=== PATIENT | male | born 1960 | race Hispanic/Latino ===

== ENCOUNTER 2023-10-20 10:44 | Emergency (ER) | payer OTHER ==
[~2023-10-20] VITALS: Ht 165.1 cm; Wt 72.6 kg
[2023-10-20] MEDS ORDERED: BACLOFEN 10 MG TABLET PO SCH (11:30)
[2023-10-20 12:07] LABS: BASOPHILS # (AUTO) 0.04 K/uL (0.00-0.20); BASOPHILS % (AUTO) 0.6 % (0.0-5.0); EOSINOPHILS # (AUTO) 0.14 K/uL (0.00-0.70); HEMATOCRIT 43.5 % (42-54); IMMATURE GRANULOCYTE ABSOLUTE 0.02 K/uL (0-1); LYMPHOCYTES # (AUTO) 1.9 K/uL (1.0-4.8); LYMPHOCYTES % (AUTO) 27.3 % (21.0-51.0); MEAN CORPUSCULAR HEMOGLOBIN 30.1 pg (27.0-33.0); MEAN CORPUSCULAR HGB CONC 33.8 g/dL (32.0-36.0); MONOCYTES # (AUTO) 0.7 K/uL (0.1-1.0); MONOCYTES % (AUTO) 9.9 % (3.0-13.0); NEUTROPHILS # (AUTO) 4.1 K/uL (1.8-7.7); NEUTROPHILS % (AUTO) 59.9 % (40.0-77.0); PLATELET COUNT (AUTO) 260 K/uL (130-400); RED BLOOD CELL COUNT(AUTO) 4.89 MIL/uL (4.50-6.20); RED CELL DISTRIBUTION WIDTH 12.3 % (11.0-15.5); WHITE BLOOD COUNT (AUTO) 6.9 K/uL (4.8-10.8)
[2023-10-20 12:18] LABS: POTASSIUM 5.1 mmol/L (3.5-5.1)
[2023-10-20 12:20] LABS: INR <= 0.93 (0.85-1.15); PROTHROMBIN TIME 10.1 SEC (9.6-11.6)
[2023-10-20 12:21] LABS: PARTIAL THROMBOPLASTIN TIME 23.9 SEC (26.3-35.5)
[2023-10-20] MEDS ORDERED: KETO10TA2 PO (12:58)
[2023-10-20] MEDS ORDERED: CYCL10TA16 PO (12:58)
[2023-10-20] MEDS: GABAPENTIN 100 MG CAPSULE PO SCH (13:17)
[2023-10-20] MEDS: KETOROLAC 15MG/ML VIAL (15MG/ML) IM ONE (13:18)
[2023-10-20] MEDS: ORPHENADRINE 60MG/2ML IM ONE (13:19)
[2023-10-20 13:52] VITALS: BP 156/80; PULSE 85; RESP 18; O2SAT 100
== END 2023-10-20 13:55 | disposition home or self-care (01) ==
LOC: EDH 10:44
DX: H51.8 Other specified disorders of binocular movement (principal); R51.9 Headache, unspecified; E11.9 Type 2 diabetes mellitus without complications; I10 Essential (primary) hypertension
CPT/HCPCS: 99285; 96374; 70450; 96375; 80048; 85025; 85610; 85730; 36415; 93005; J1885; J2360